=== PATIENT | male | born 1975 | race Two or more races ===

== ENCOUNTER 2024-01-01 12:34 | Inpatient (IN) | payer OTHER ==
[~2024-01-01] VITALS: Ht 167.6 cm; Wt 83.9 kg
[~2024-01-01 12:34] MED LIST: AVALIDE 150/12.1 TAB PO; NORVASC5 MG
--- NOTE | 2024-01-01 13:16 | NUR ---
PTE REFIEFE DIFICULTAD AL RESPIRA Y AARON TOS . SE LE BOLIVAR S/V Y UBICA EN ASMA UNID.
--- NOTE | 2024-01-01 13:22 | NUR ---
PTE REFEIE DIFICULATAD AL RESPIRAR Y AARON TOS , SE LE BOLIVAR S/V Y SE UBICA EN ASMA UNID. PTE REFIERFE QUE NO SE CHRISTIAN TOMADO LA PASTILLA DE LA PRECION POR QUE SE HINCHA.SE LE BOLIVAR PRECION MANUAL DE 145/100 PTE NO TIENE DOLOR DE PECHO .
--- NOTE | 2024-01-01 13:23 | NUR ---
PTE REFIEE QUE LLEVA HACE MAS DE 30 KATHLEEN.
[2024-01-01] MEDS ORDERED: METHYLPREDNISOLONE SOD SUCC 125 MG VIAL IM ONE (13:45)
[2024-01-01] MEDS ORDERED: 0.9 % SODIUM CHLORIDE 1,000 ML IV ONE (13:45)
[2024-01-01] MEDS ORDERED: MAGNESIUM SULFATE IN WATER 2 GM/50 ML PIGGYBAG IV ONE (13:45)
[2024-01-01] MEDS ORDERED: LEVALBUTEROL HCL 1.25 MG/3 ML SOLUTION IH ONE (13:45)
--- NOTE | 2024-01-01 14:27 | NUR ---
SE ORIENTA SOBRE TRATAMIENTO MEDICO A REALIZA. SE CANALIZA VENA X2 CON ANGIO #18 AMBOS PATENTES. SE COMIENZA TRATAMIENTO DE IV FLUID
[2024-01-01 14:32] LABS: HEMATOCRIT 36.7 % (39.0-48.0); HEMOGLOBIN 12.3 g/dL (13-16.00); MEAN CELL VOLUME 87.7 fL (80.0-100.00); MEAN CORPUSCULAR HEMOGLOBIN 29.3 pg (27.00-32.0); MEAN CORPUSCULAR HGB CONC 33.4 g/dl (32.0-36.0); PLATELET COUNT 311 K/uL (150-450); RED BLOOD COUNT 4.19 M/uL (4.00-6.00); RED CELL DISTRIBUTION WIDTH 13.8 % (11.5-14.5)
[2024-01-01 14:41] LABS: ABG PH 7.478 (7.35-7.45); ABG PO2 81.9 mmHg (80-100); ABG pCO2 29.2 mmHg (35-45); BASE EXCESS -1.1 mmol/l; BICARBONATE 21.1 mmol/l (23-25); SaO2 96.8 %; allen test SATISFACTORY; o2 21 %; puncture site RADIAL RIGHT
[2024-01-01 14:57] LABS: ALBUMIN 2.8 gm/dL (3.4-5.0); BILIRUBIN TOTAL 1.32 mg/dL (0.3-1.2); CALCIUM 8.3 mg/dL (8.5-10.1); CREATININE SERUM 0.96 mg/dL (0.70-1.30); GFR 83.96; POTASSIUM 4.19 mEq/L (3.5-5.1); TOTAL PROTEIN 5.8 gm/dL (6.4-8.2)
--- NOTE | 2024-01-01 15:23 | NUR ---
SE RECIBE PACIENTE ALERTA Y ORIENTADO X3 EL CUAL AL MOMENTO SE OBSERVA EN CAMA #1 EN POSICION SEMI SENTADA CON BARANDAS ELEVADAS. SE OBSERVA PACIENTE CONECTADO A MONITOR CARDIACO Y OXIMETRIA DE PULSO CON CANULA NASAL A 3LT/MIN. AL MOMENTO SE OBSERVA CON 0.9NSS BAJANDO A 40 ML/HRS. SE MANTIENE BAJO OBSERVACION PARA CONTINUACION DE TRATAMIENTO.
[2024-01-01 15:29] LABS: D DIMER 0.56 MG/L; INR 1.16; PARTIAL THROMBOPLASTIN TIME 23.2 SECONDS (22.0-34.0); PROTHROMBIN TIME 12.5 SECONDS (9.0-11.5)
[2024-01-01 16:35] LABS: URINE APPEARANCE Clear; URINE BILIRRUBIN Negative (NEGATIVE); URINE BLOOD Negative; URINE COLOR Yellow; URINE GLUCOSE Negative (NEGATIVE); URINE KETONE 15 (NEGATIVE); URINE LEUKOCYTE Negative; URINE NITRATE Negative; URINE PROTEIN 30 (NEGATIVE)
[2024-01-01 16:44] LABS: URINE BACTERIA 2.5 uL (0.0-1933); URINE RBC 4.7 uL (0.0-20.8)
[2024-01-01] MEDS ORDERED: FUROsemide 20 MG/2 ML VIAL IV SCH (18:20)
[2024-01-01] MEDS ORDERED: CEFTRIAXONE SODIUM 1,000 MG VIAL IV SCH (18:22)
[2024-01-01] MEDS ORDERED: ONDANSETRON HCL 4 MG in DEXTROSE 5 % IN WATER 50 ML IV PRN (18:30)
[2024-01-01] MEDS ORDERED: ACETAMINOPHEN 500 MG GEL..CAP PO PRN (18:30)
[2024-01-01] MEDS ORDERED: hydrALAZINE HCL 20 MG VIAL IV PRN (18:30)
[2024-01-01 20:05] LABS: CKMB 1.3 NG/ML (0.5-3.6)
[2024-01-01 20:47] VITALS: BP 154/87; O2SAT 97
[2024-01-01] MEDS ORDERED: IPRATROPIUM BROMIDE 0.5 MG/2.5 ML AMPUL.NEB IH SCH (21:00)
[2024-01-01] MEDS ORDERED: FAMOTIDINE/PF 20 MG in 0.9 % SODIUM CHLORIDE 8 ML IV PUSH SCH (21:00)
[2024-01-01] MEDS ORDERED: BUDESONIDE 0.5 MG/2 ML AMPUL.NEB IH SCH (21:00)
[2024-01-01 23:12] VITALS: BP 143/90; O2SAT 95
[2024-01-02 01:00] LABS: ABG PH 7.391 (7.35-7.45); ABG PO2 73.2 mmHg (80-100); ABG pCO2 42.9 mmHg (35-45); BASE EXCESS 0.3 mmol/l; BICARBONATE 25.4 mmol/l (23-25); SaO2 94.4 %; Tco2 26.8 mmol/l
[2024-01-02 04:00] VITALS: BP 136/78; O2SAT 93
[2024-01-02 06:23] LABS: PH,URINE 6.5 (5.0-8.0); URINE APPEARANCE Clear; URINE BILIRRUBIN Negative (NEGATIVE); URINE BLOOD Negative; URINE COLOR Yellow; URINE KETONE Negative (NEGATIVE); URINE LEUKOCYTE Negative; URINE NITRATE Negative; URINE PROTEIN Trace (NEGATIVE)
[2024-01-02 06:26] LABS: URINE BACTERIA 6.2 uL (0.0-1933); URINE EPITHELIAL CELLS 0.1 uL (0.0-38.8); URINE GLUCOSE >=1000 MG/DL (NEGATIVE); URINE RBC 2.4 uL (0.0-20.8); URINE WBC 0.7 uL (0.0-23.2)
[2024-01-02 06:34] LABS: allen test SATISFACTORY; o2 32 %; puncture site RADIAL LEFT
[2024-01-02 07:28] VITALS: BP 125/91; O2SAT 98
[2024-01-02 07:46] LABS: HEMATOCRIT 38.2 % (39.0-48.0); HEMOGLOBIN 12.8 g/dL (13-16.00); MEAN CELL VOLUME 86.5 fL (80.0-100.00); MEAN CORPUSCULAR HGB CONC 33.5 g/dl (32.0-36.0); PLATELET COUNT 314 K/uL (150-450); RED BLOOD COUNT 4.42 M/uL (4.00-6.00); RED CELL DISTRIBUTION WIDTH 14.1 % (11.5-14.5)
[2024-01-02 08:00] LABS: INR 1.21; PARTIAL THROMBOPLASTIN TIME 27.3 SECONDS (22.0-34.0)
[2024-01-02 08:01] LABS: ALBUMIN 2.5 gm/dL (3.4-5.0); BILIRUBIN TOTAL 0.52 mg/dL (0.3-1.2); BILIRUBIN,CONJUGATED 0.18 mg/dL (0.0-0.2); BILIRUBIN,UNCONJUGATED 0.34 mg/dL (0.0-0.6); CALCIUM 8.4 mg/dL (8.5-10.1); CHOL HDL RATIO 2.9 (0-5.0); CREATININE SERUM 1.06 mg/dL (0.70-1.30); GFR 74.89; GLOBULINA 3.4 G/DL (2.4-3.5); POTASSIUM 5.16 mEq/L (3.5-5.1); TOTAL PROTEIN 5.9 gm/dL (6.4-8.2)
[2024-01-02 08:03] LABS: C-REACTIVE PROTEIN 9.01 MG/DL (0.00-0.29)
[2024-01-02 08:26] LABS: ERYTHROCYTE SEDIMENTATION RATE 35 mm/hr
[2024-01-02 08:49] LABS: CKMB 1.8 NG/ML (0.5-3.6)
[2024-01-02] MEDS ORDERED: ENOXAPARIN SODIUM 40 MG/0.4 ML SYRINGE SUBCUTANEO SCH (09:00)
[2024-01-02] MEDS ORDERED: IRBESARTAN 150 MG TABLET PO SCH (09:00)
[2024-01-02 11:46] LABS: CKMB 3.3 NG/ML (0.5-3.6)
[2024-01-02 12:00] VITALS: BP 126/84; O2SAT 97
[2024-01-02 15:15] VITALS: BP 136/87; O2SAT 98
[2024-01-02] MEDS ORDERED: IPRATROPIUM BROMIDE 0.5 MG/2.5 ML AMPUL.NEB IH SCH (18:00)
[2024-01-02 22:05] VITALS: BP 133/85; O2SAT 97
[2024-01-03] VITALS (9 sets, daily range): BP systolic 123–150; BP diastolic 85–94; O2SAT 88–100
[2024-01-03] MEDS ORDERED: IRBESARTAN 300 MG TABLET PO SCH (09:00)
[2024-01-03] MEDS ORDERED: ISOSORBIDE MONONITRATE 30 MG TABLET PO SCH (09:00)
[2024-01-03] MEDS ORDERED: METOPROLOL SUCCINATE 25 MG TAB.SR.24H PO SCH (09:00)
[2024-01-03] MEDS ORDERED: EMPAGLIFLOZIN 10 MG TABLET PO NR (11:30)
[2024-01-04] VITALS (7 sets, daily range): BP systolic 133–160; BP diastolic 86–90; O2SAT 89–99
[2024-01-04 07:12] LABS: ALBUMIN 2.4 gm/dL (3.4-5.0); BILIRUBIN TOTAL 0.46 mg/dL (0.3-1.2); CALCIUM 8.1 mg/dL (8.5-10.1); CREATININE SERUM 1.1 mg/dL (0.70-1.30); GFR 71.75; GLOBULINA 2.8 G/DL (2.4-3.5); POTASSIUM 4.12 mEq/L (3.5-5.1); TOTAL PROTEIN 5.2 gm/dL (6.4-8.2)
[2024-01-04] MEDS ORDERED: METOPROLOL SUCCINATE 50 MG TAB.SR.24H PO SCH (09:00)
[2024-01-04] MEDS ORDERED: EMPAGLIFLOZIN 10 MG TABLET PO SCH (09:00)
[2024-01-04] MEDS ORDERED: SPIRONOLACTONE 25 MG TABLET PO SCH (09:00)
[2024-01-04] MEDS ORDERED: FUROsemide 40 MG/4 ML VIAL IV SCH (09:00)
[2024-01-05] VITALS (8 sets, daily range): BP systolic 119–122; BP diastolic 82–90; O2SAT 85–100
[2024-01-05] MEDS ORDERED: FUROsemide 20 MG/2 ML VIAL IV SCH (09:00)
[2024-01-05 09:11] LABS: HEMATOCRIT 40.6 % (39.0-48.0); HEMOGLOBIN 13.1 g/dL (13-16.00); MEAN CELL VOLUME 88.1 fL (80.0-100.00); MEAN CORPUSCULAR HEMOGLOBIN 28.5 pg (27.00-32.0); MEAN CORPUSCULAR HGB CONC 32.4 g/dl (32.0-36.0); PLATELET COUNT 336 K/uL (150-450); RED BLOOD COUNT 4.61 M/uL (4.00-6.00); RED CELL DISTRIBUTION WIDTH 14.3 % (11.5-14.5)
[2024-01-05 09:17] LABS: INR 1.04; PROTHROMBIN TIME 11.3 SECONDS (9.0-11.5)
[2024-01-05 09:59] LABS: ALBUMIN 2.7 gm/dL (3.4-5.0); BILIRUBIN TOTAL 0.66 mg/dL (0.3-1.2); CALCIUM 8.3 mg/dL (8.5-10.1); CREATININE SERUM 1.18 mg/dL (0.70-1.30); GFR 66.17; GLOBULINA 3.1 G/DL (2.4-3.5); POTASSIUM 4.29 mEq/L (3.5-5.1); TOTAL PROTEIN 5.8 gm/dL (6.4-8.2)
[2024-01-06 00:03] VITALS: O2SAT 98
[2024-01-06 00:11] VITALS: BP 116/84; O2SAT 99
[2024-01-06 02:47] VITALS: O2SAT 90
[2024-01-06 08:56] VITALS: BP 127/93; O2SAT 100
[2024-01-06 21:48] VITALS: BP 119/80
[2024-01-07 01:47] VITALS: BP 119/81; O2SAT 97
[2024-01-07 08:53] VITALS: BP 134/94; O2SAT 97
[2024-01-07] MEDS ORDERED: FUROsemide 20 MG TABLET PO SCH (09:00)
[2024-01-07 09:36] VITALS: O2SAT 97
== END 2024-01-07 16:41 | disposition home or self-care (01) | DRG 292 ==
LOC: ER 12:36 → ICU-2 18:47 → SEC-K 01-02 11:38 → MEDJ 01-02 19:11
PROVIDERS: General Practice; Internal Medicine; ADMIT Internal Medicine; ATTEND Internal Medicine
PROC: BB24YZZ Computerized Tomography (CT Scan) of Bilateral Lungs using Other Contrast (ICD-10-PCS; principal; 2024-01-01)
PROC: B246ZZZ Ultrasonography of Right and Left Heart (ICD-10-PCS; 2024-01-01)
PROC: 3E0F7GC Introduction of Other Therapeutic Substance into Respiratory Tract, Via Natural or Artificial Opening (ICD-10-PCS; 2024-01-01)
PROC: 4A12X4Z Monitoring of Cardiac Electrical Activity, External Approach (ICD-10-PCS; 2024-01-03)
DX: I11.0 Hypertensive heart disease with heart failure (principal); J81.1 Chronic pulmonary edema; I50.9 Heart failure, unspecified; Z72.0 Tobacco use; B96.0 Mycoplasma pneumoniae [M. pneumoniae] as the cause of diseases classified elsewhere; R78.89 Finding of other specified substances, not normally found in blood

== ENCOUNTER 2024-01-20 18:43 | Inpatient (IN) | payer OTHER ==
[~2024-01-20] VITALS: Ht 165.1 cm; Wt 92.5 kg
[2024-01-20] MEDS ORDERED: NITROGLYCERIN 250 ML IV SCH (19:15)
[2024-01-20] MEDS ORDERED: FUROsemide 40 MG/4 ML VIAL IV ONE (19:15)
[2024-01-20 19:38] LABS: HEMATOCRIT 36.7 % (39.0-48.0); HEMOGLOBIN 12.3 g/dL (13-16.00); MEAN CORPUSCULAR HEMOGLOBIN 28.4 pg (27.00-32.0); MEAN CORPUSCULAR HGB CONC 33.4 g/dl (32.0-36.0); PLATELET COUNT 253 K/uL (150-450); RED BLOOD COUNT 4.31 M/uL (4.00-6.00); RED CELL DISTRIBUTION WIDTH 14.8 % (11.5-14.5)
[2024-01-20 19:54] LABS: INR 1.08; PARTIAL THROMBOPLASTIN TIME 27.2 SECONDS (22.0-34.0); PROTHROMBIN TIME 11.7 SECONDS (9.0-11.5)
[2024-01-20 19:59] LABS: ALBUMIN 3.1 gm/dL (3.4-5.0); BILIRUBIN TOTAL 0.93 mg/dL (0.3-1.2); CALCIUM 8.4 mg/dL (8.5-10.1); CREATININE SERUM 1.71 mg/dL (0.70-1.30); GFR 43.12; GLOBULINA 3.2 G/DL (2.4-3.5); POTASSIUM 3.7 mEq/L (3.5-5.1); TOTAL PROTEIN 6.3 gm/dL (6.4-8.2)
[2024-01-20] MEDS ORDERED: CARVEDILOL 3.125 MG TABLET PO SCH (21:15)
[2024-01-20] MEDS ORDERED: ACETAMINOPHEN 500 MG GEL..CAP PO PRN (21:15)
[2024-01-20] MEDS ORDERED: FUROsemide 20 MG/2 ML VIAL IV SCH (21:19)
[2024-01-20] MEDS ORDERED: ENOXAPARIN SODIUM 40 MG/0.4 ML SYRINGE SUBCUTANEO SCH (21:22)
[2024-01-20 22:02] VITALS: BP 129/77; O2SAT 99
[2024-01-20 23:09] LABS: PH,URINE 6.5 (5.0-8.0); URINE APPEARANCE Clear; URINE BILIRRUBIN Negative (NEGATIVE); URINE BLOOD Negative; URINE COLOR Yellow; URINE GLUCOSE Negative (NEGATIVE); URINE KETONE Negative (NEGATIVE); URINE LEUKOCYTE Negative; URINE NITRATE Negative; URINE PROTEIN Trace (NEGATIVE)
[2024-01-20 23:13] LABS: URINE EPITHELIAL CELLS 1.5 uL (0.0-38.8)
[2024-01-20 23:18] VITALS: BP 137/94; O2SAT 95
[2024-01-20 23:35] LABS: URINE RBC 0.7 uL (0.0-20.8); URINE WBC 1.2 uL (0.0-23.2)
[2024-01-21] VITALS (16 sets, daily range): BP systolic 106–136; BP diastolic 66–95; O2SAT 95–99
[2024-01-21] MEDS ORDERED: FUROsemide 40 MG/4 ML VIAL IV SCH ×2 (01:00→21:00)
[2024-01-21] MEDS ORDERED: METOPROLOL SUCCINATE 25 MG TAB.SR.24H PO SCH (09:00)
[2024-01-21] MEDS ORDERED: SPIRONOLACTONE 25 MG TABLET PO SCH (09:00)
[2024-01-21] MEDS ORDERED: FAMOTIDINE/PF 20 MG in 0.9 % SODIUM CHLORIDE 8 ML IV PUSH SCH (09:00)
[2024-01-21] MEDS ORDERED: IRBESARTAN 150 MG TABLET PO SCH (09:00)
[2024-01-21] MEDS ORDERED: NITROGLYCERIN IN 5 % DEXTROSE 250 ML IV SCH (10:15)
[2024-01-22] VITALS (9 sets, daily range): BP systolic 114–123; BP diastolic 84–88; O2SAT 87–100
[2024-01-22 07:04] LABS: ALBUMIN 2.9 gm/dL (3.4-5.0); BILIRUBIN TOTAL 0.72 mg/dL (0.3-1.2); CALCIUM 8.3 mg/dL (8.5-10.1); CREATININE SERUM 1.09 mg/dL (0.70-1.30); GFR 72.51; GLOBULINA 2.7 G/DL (2.4-3.5); POTASSIUM 4.04 mEq/L (3.5-5.1); TOTAL PROTEIN 5.6 gm/dL (6.4-8.2)
[2024-01-22] MEDS ORDERED: ** NF ** (JARDIANCE 10 MG) PO SCH (09:00)
[2024-01-22] MEDS ORDERED: SPIRONOLACTONE 25 MG TABLET PO SCH (09:00)
[2024-01-22] MEDS ORDERED: ALBUTEROL SULFATE 3 ML/2.5 MG AMPUL.NEB IH SCH (17:00)
[2024-01-23] VITALS (9 sets, daily range): BP systolic 122–126; BP diastolic 79–85; O2SAT 88–100
[2024-01-23] MEDS ORDERED: EMPAGLIFLOZIN 10 MG TABLET PO SCH (09:00)
[2024-01-23] MEDS ORDERED: BUMETANIDE 1 MG TABLET PO NR (11:30)
[2024-01-23] MEDS ORDERED: BUMETANIDE 1 MG TABLET PO SCH ×2 (21:00)
[2024-01-24] VITALS: BP 119/81; O2SAT 96
[2024-01-24 08:00] VITALS: BP 121/84; O2SAT 97
[2024-01-24 11:02] VITALS: O2SAT 97
[2024-01-24 13:28] VITALS: O2SAT 92
== END 2024-01-24 13:40 | disposition home or self-care (01) | DRG 291 ==
LOC: ER 18:45 → ICU-2 21:24 → SURG 01-21 23:33
PROVIDERS: General Practice; Internal Medicine; ADMIT Internal Medicine; ATTEND Internal Medicine
PROC: B246ZZZ Ultrasonography of Right and Left Heart (ICD-10-PCS; 2024-01-21)
PROC: BT43ZZZ Ultrasonography of Bilateral Kidneys (ICD-10-PCS; 2024-01-21)
PROC: 4A12X4Z Monitoring of Cardiac Electrical Activity, External Approach (ICD-10-PCS; principal; 2024-01-22)
PROC: 3E0F7GC Introduction of Other Therapeutic Substance into Respiratory Tract, Via Natural or Artificial Opening (ICD-10-PCS; 2024-01-23)
DX: I13.0 Hypertensive heart and chronic kidney disease with heart failure and stage 1 through stage 4 chronic kidney disease, or unspecified chronic kidney disease (principal); I50.23 Acute on chronic systolic (congestive) heart failure; N17.9 Acute kidney failure, unspecified; I34.0 Nonrheumatic mitral (valve) insufficiency; N18.9 Chronic kidney disease, unspecified; F17.200 Nicotine dependence, unspecified, uncomplicated; R06.02 Shortness of breath